=== PATIENT | male | born 1995 | race Two or more races ===

== ENCOUNTER 2023-12-31 21:50 | Emergency (ER) | payer SELFPAY ==
[~2023-12-31] VITALS: Ht 167.6 cm; Wt 75.0 kg
[2023-12-31 22:19] VITALS: BP 114/77; PULSE 61; RESP 20; TEMP 98.2
== END 2023-12-31 23:08 | disposition still patient (30) ==
LOC: EMS 21:50
DX: Z53.21 Procedure and treatment not carried out due to patient leaving prior to being seen by health care provider (principal)